=== PATIENT | male | born 1940 | race Caucasian/White ===

== ENCOUNTER → 2017-03-03 | Outpatient (CLI) | payer OTHER, MEDICARE | LOC: MMPC 11:11 | PROVIDERS: ATTEND Surgery | DX: R10.13 Epigastric pain (principal); K59.04 Chronic idiopathic constipation; R19.7 Diarrhea, unspecified | CPT/HCPCS: 99213; G0463 ==

== ENCOUNTER → 2017-03-10 | Outpatient (CLI) | payer OTHER, MEDICARE ==
--- NOTE | 2017-03-10 16:41 | DI ---
AIR CONTRAST BARIUM ENEMA, 03/10/2017 1:56 PM : Clinical History: Chronic idiopathic constipation. The patient indicated she is status post appendect terrance. Previous Exam: None at this facility. A "time out" session was performed to verify the patient's name and date of prior to initiatin g this procedure. The set decorator film is normal. Barium and air are advanced from the rectum to the cecum with visualization of the ileocecal valve. The appendix is not visualized consistent with the history of a prior appendectomy. There is redundancy of the ascending colon and the sigmoid colon. Diverticu la are present in the distal transverse colon through the sigmoid colon and as the bowel was distende d in these regions, small retained fecal particles were released from the diverticula into the, bariu m. Therefore, small polypoid lesions less than 10 mm in diameter cannot be identifiable. The entire c olon shows no evidence of an annular lesion, and the mucosal pattern is normal. The terminal ileum is normal. The distal descending thoracic aorta is quite prominent and there was an aneurysm present i n this location on a CT scan of the abdomen and pelvis from 02/12/2015. Readin. There is redundancy of the ascending colon and the sigmoid colon with diverticulosis involving th e distal transverse colon to the sigmoid colon without evidence of diverticulitis. 2. Small particles of stool were released from the diverticula as the colon was distended and theref ore small polyps less than 10 mm in diameter can be missed. No annular lesion or other stricture is i dentified, and there is no evidence of diverticulitis. The mucosal pattern throughout the colon is no rmal. 3. There is an aneurysm of the distal descending thoracic aorta.
== END ==
LOC: RAD 13:54
PROVIDERS: ATTEND Surgery
DX: K59.04 Chronic idiopathic constipation (principal); R10.13 Epigastric pain; K57.30 Diverticulosis of large intestine without perforation or abscess without bleeding
CPT/HCPCS: 74280

== ENCOUNTER 2018-09-02 15:58 | Observation (INO) ==
[2018-09-02] MEDS ORDERED: Sodium Chloride 0.9% 1,000 ML PRIMARY IV ONE (16:13)
[2018-09-02] MEDS ORDERED: PANTOPRAZOLE IV 40 MG VIAL IVP ONE ×2 (16:16→20:45)
--- NOTE | 2018-09-02 16:19 | EKG ---
[address] [place] [address] Measurements Intervals [place] Rate: 117 P: 24 MD: 160 QRS: 252 QRSD: 132 T: -12 QT: 346 QTc: 415 Interpretive Statements SINUS TACHYCARDIA MARKED RIGHT AXIS DEVIATION RIGHT BUNDLE BRANCH BLOCK MODERATE T-WAVE ABNORMALITY, CONSIDER LATERAL ISCHEMIA Compared to ECG 10/22/2017 09:10:04 Right-axis deviation now present T-wave abnormality now present Possible ischemia now present Sinus bradycardia no longer present Myocardial infarct finding no longer present Electronically Signed On 09-03-18 12:28:23 [facility] by Juan Jasmine [email or web address]
[2018-09-02 16:39] LABS: BASOPHILS # (AUTO) 0.02 10*3/UL; BASOPHILS % (AUTO) 0.1 % (0-1); EOSINOPHILS # (AUTO) 0 10*3/UL; EOSINOPHILS % (AUTO) 0 % (0-8); Hematocrit [HCT] 33.3 % (42.0-52.0); Hemoglobin [HGB] 10.4 g/dL (14.0-18.0); LYMPHOCYTES # (AUTO) 1.55 10*3/uL; MEAN CORPUSCULAR HGB CONC 31.2 g/dL (33-37); MEAN CORPUSCULAR VOLUME 89.5 FL (80-90); MEAN PLATELET VOLUME 11.2 FL (7.4-12.2); MONOCYTES # (AUTO) 0.55 10*3/UL (0.3-0.8); MONOCYTES % (AUTO) 3.9 % (5-15); NEUTROPHILS # (AUTO) 11.79 10*3/UL; NEUTROPHILS % (AUTO) 84.1 % (50-80); RED BLOOD COUNT 3.72 10^6/uL (4.70-6.10)
[2018-09-02 16:47] LABS: PLATELET MORPHOLOGY COMMENT NORMAL MORPHOLOGY (NORM); RBC MORPHOLOGY COMMENT NORMAL MORPHOLOGY (NORM); WBC MORPHOLOGY COMMENT NORMAL MORPHOLOGY (NORM)
[2018-09-02 16:52] LABS: BLOOD UREA NITROGEN 80 mg/dL (7-22); SERUM ALBUMIN 4.5 g/dL (3.5-4.8)
--- NOTE | 2018-09-02 17:44 | DI ---
EXAM: CT Abdomen and Pelvis Without Intravenous Contrast CLINICAL HISTORY: Right-sided abdominal pain, melena. TECHNIQUE: Axial computed tomography images of the abdomen and pelvis without intravenous contrast. COMPARISON: CT abdomen and pelvis dated 02/12/15 FINDINGS: Lung bases: 6 mm nodule in the dependent right lung base (series 2 image 7). Mild dependent atelectasis in bilateral lung bases. ABDOMEN: Liver: Unremarkable. Gallbladder and bile ducts: Status post cholecystectomy. No ductal dilation. Pancreas: Unremarkable. No ductal dilation. Spleen: Unremarkable. No splenomegaly. Adrenals: Unremarkable. No mass. Kidneys and ureters: Scattered bilateral simple appearing renal cortical cysts, largest measuring 5.8 cm in the left mid kidney. No hydronephrosis or hydroureter. Stomach and bowel: Descending and sigmoid colonic diverticulosis. Subtle stranding adjacent to the junction of the descending and sigmoid colon may suggest a low-grade diverticulitis. No obstruction. PELVIS: Appendix: Appendix is not definitively identified however no inflammatory changes are seen in the right lower quadrant. Bladder: Unremarkable. No stones. Reproductive: Enlarged prostate gland, impressing upon the urinary bladder base. ABDOMEN and PELVIS: Intraperitoneal space: Unremarkable. No free air. No significant fluid collection. Bones/joints: Posterior erendira and transpedicular screw fixation of L5-S1 with expected alignment. Status post L5 laminectomies. Multilevel degenerative changes throughout the visualized spine with disc space loss and endplate osteophytes. No acute fracture. Soft tissues: Unremarkable. Vasculature: Status post aortobiiliac stent grafts with celiac artery stent and bilateral renal arterial stents. Lack of IV contrast limits evaluation for stent patency. Stable appearance of a 2.8 x 2.5 cm diameter saccular aortic aneurysm on the right just below the right renal artery origin. Stable appearance of the distal infrarenal abdominal aortic aneurysm has a maximum diameter of 4.5 cm. Lymph nodes: Unremarkable. No enlarged lymph nodes. IMPRESSION: 1. Descending and sigmoid colonic diverticulosis. Subtle stranding adjacent to the junction of the descending and sigmoid colon may suggest a low-grade diverticulitis. No adjacent free air or fluid collections. 2. Status post aortobiiliac stent grafts with celiac artery stent and bilateral renal arterial stents. Lack of IV contrast limits evaluation for stent patency. 3. 2.8 x 2.5 cm diameter saccular aneurysm of the abdominal aorta on the right, just below the right renal artery origin (previously measuring 1.8 x 1.8 cm and 2015. 4. Distal abdominal aortic aneurysm with a maximum diameter of 4.5 cm (previously measuring 3.9 cm in 2015). 5. Enlarged prostate gland, impressing upon the urinary bladder base. 6. Scattered bilateral simple appearing renal cortical cysts, largest measuring 5.8 cm in the left mid kidney. 7. 6 mm nodule in the dependent right lung base (series 2 image 7). In low-risk patients (minimal or absent history of smoking or other known risk factors), recommend chest CT follow-up at 6-12 months. If stable consider an additional follow-up CT at 18-24 months. For high-risk patients (history of smoking or other known risk factors), recommend chest CT follow-up in 6-12 months and then at 18-24 months.
[2018-09-02] MEDS ORDERED: CefOXitin Inj 2 GM in Sodium Chloride 0.9% 100 ML IV ONE (18:42)
[2018-09-02] MEDS: Lactated Ringers 1,000 ML PRIMARY IV SCH (22:05)
--- NOTE | 2018-09-03 02:09 | PDOC ---
GI Bleed/Rectal Complaint HPI - General Chief Complaint: GI Bleed / Rectal Pain Stated Complaint: BLACK STOOL Date Seen by Provider: 09/03/18 Time Seen by Provider: 16:25 Source: POSITIVE: Patient Exam Limitations: POSITIVE: No limitations Nurse's Notes Reviewed & Considered: Yes - History of Present Illness Initial Comments: The patient is a 78-year-old male who presents to the emergency department with complaints of black stool. He underwent endoscopic repair of an abdominal aneurysm in [place] 3 weeks ago. Postoperatively it sounds like he did very well other than he was "spitting up a little bit of blood" for a couple of days after the procedure. He states that he has been doing fine since then. Today he has had 3 episodes of black tarry stool, 2 of which were quite large. He states that he does feel a little bit lightheaded. He has some mild vague abdominal pain. He denies any nausea or vomiting, fevers or chills or any other associated complaints. He states that he was not discharged home on any blood thinners after his procedure. - Patient Home Medications Home Medications: Home Medications Docusate Sodium [Stool Softener] 1 tab PO TID 05/24/15 Mometasone/Formoterol [Dulera 100 Mcg/5 Mcg Inhaler] 1 - 2 inh INH BID 05/24/15 Albuterol Neb Soln 0.083% 1 vial IH QID PRN #30 box 06/19/16 - Patient Allergies Allergies/Adverse Reactions: Allergies Allergy/AdvReac Type Severity Reaction Status Date / Time No Known Drug Allergies Allergy NOT Verified 09/02/18 21:09 APPLICABLE Past Medical History - heen HEENT History: Cataracts Additional HEENT History: SEPTAL DEVIATION WITH OBSTRUCTION OF LEFT SIDE Cardiovascular History: Hyperlipidemia Respiratory History: Home Oxygen Use Additional Respiratory History: LUNG DAMAGE DUE TO URANIUM EXPOSURE. OXYGEN AT NIGHT 4L Gastrointestinal History: GERD, Gallbladder Disease Additional Gastrointestinal History: COLON POLYPS Genitourinary History: Denies History Additional Genitourinary History: ENLARGED PROSTATE Endocrine History: Type 2 Diabetes (diet) Additional Endocrine History: "BORDERLINE DIABETIC" Musculoskeletal History: Arthritis Prosthesis or Implant: Yes (LUMBAR) Neurological History: Denies History, [place], Other (please comment) Additional Neurological History: INSOMNIA Blood Disorders: Denies History, Anemia Additional Blood Disorders History: acute anemia Psychiatric History: Denies History History of Sexually Transmitted Diseases: No Male Reproductive History: Denies History Cancer History: Denies History In Past Year Been Physically Harmed or Verbally Threatened: No History of MDRO: No History of Other Communicable Diseases: No Tobacco Use: Former Smoker Alcohol Use: Occasionally Type of alcohol normally used: Beer In the Past 12 Months, Have Used or Abuse Any Substance: None Previous Surgical History: Yes Type / Date of Surgery: APPY 02/12/15 COLONOSCOPY/TONSILLECTOMY/VASECTOMY/LUMBAR FUSION THREE LEVEL AND DISCS/CATATACTS BILAT/RETINAL REPAIR BILAT/ROTATOR CUFF REPAIR LEFT Anesthesia Reactions: No Malignant Hyperthermia: No Significant Family History: No pertinent family hx Past Medical History Reviewed: Reviewed - No Changes ROS - Limitations ROS Limitations: No Limitations Constitution: DENIES: Chills, Fever Cardiovascular: REPORTS: Denies Cardiac Symptoms. DENIES: Chest Pain Respiratory: DENIES: Hurts To Breathe, Shortness Of Breath Neurological: REPORTS: Denies Neuro Symptoms Gastrointestinal: REPORTS: Abdominal Pain (Mild vague abdominal pain), Black Stools. DENIES: Nausea, Vomitting Endocrine: REPORTS: Fatigue Genitourinary: REPORTS: Denies Symptoms Eyes: REPORTS: Denies Symptoms ENT: REPORTS: Denies Symptoms Skin: DENIES: Rash GI Bleed / Rectal Complaint PE - General Appearance General Appearance: POSITIVE: Alert, Cooperative, No Acute Distress - HEENT HEENT: POSITIVE: Head Inspection Nml, Eyes Inspection Nml, Ears Inspection Nml, Nose Inspection Nml, Pharynx Inspect. Nml - Neck Neck: POSITIVE: Normal Inspection. NEGATIVE: Lymphadenopathy - Respiratory Respiratory: POSITIVE: No Respiratory Distress, Breath Sounds Normal - Cardiovascular Cardiovascular: POSITIVE: Regular Rate and Rhythm, Heart Sounds Normal Peripheral Pulses: Dorsalis-pedis (R): 2+, Dorsalis-pedis (L): 2+ - Abdomen Abdomen: Soft: (All Quadrants), Normal Bowel Sounds: (All Quadrants), No Guarding: (All Quadrants), No Rebound: (All Quadrants), No Palpabale Mass: (All Quadrants) Additional Abdomen Details: He does have some mild tenderness in the right mid abdomen, no guarding or re bound tenderness, no palpable mass - Genital / Rectal Rectal: POSITIVE: Other (Stool was grossly melanotic and is heme positive) - Skin Skin: POSITIVE: Color Normal - Extremities Extremity: Normal ROM: (All Extremities), Normal Inspection: (All Extremities) - Neurological / Psychological Neurological: POSITIVE: Oriented X3, gl accountant Normal As Tested, Motor Normal, Sensation Normal GI Bleed / Rectal Progress - Results Reviewed by me Xrays/CTs/US Reviewed by me: Yes Discussed with Radiologist: Yes Radiology Findings: CT scan of the abdomen and pelvis without IV contrast shows diverticular disease with some vague inflammatory change along the sigmoid colon suspicious for diverticulitis per radiologist. Lab Results Reviewed by Me: Yes Lab Results:: Laboratory Results 09/02/18 09/02/18 09/02/18 16:13 16:13 16:13 WBC 14.02 H RBC 3.72 L Hgb 10.4 L Hct 33.3 L MCV 89.5 MCH 28.0 MCHC 31.2 L RDW Std Deviation 46.1 RDW Coeff of Alla 14.5 Plt Count 213 MPV 11.2 Immature Gran % (Auto) 0.8 Neut % (Auto) 84.1 H Lymph % (Auto) 11.1 [place] % (Auto) 3.9 L Eos % (Auto) 0 Baso % (Auto) 0.1 Immature Gran # (Auto) 0.11 Neut # (Auto) 11.79 Lymph # (Auto) 1.55 [place] # (Auto) 0.55 Eos # (Auto) 0 Baso # (Auto) 0.02 WBC Morphology Comment Normal morphology Plt Morphology Comment Normal morphology RBC Morph Comment Normal morphology Sodium 143 Potassium 4.8 Chloride 112 Carbon Dioxide 18 L Anion Gap 13 BUN 80 H Creatinine 1.6 H Estimated GFR Benzene Worker BUN/Creatinine Ratio 50.00 H Glucose 188 H Calculated Osmolality 324.0 H Calcium 9.4 Magnesium 1.9 Total Bilirubin 0.6 AST 23 ALT 25 Alkaline Phosphatase 75 Troponin I < 0.012 C-Reactive Protein 1.0 H Total Protein 6.9 Albumin 4.5 Globulin 2.4 L Albumin/Globulin Ratio 1.80 Blood Type Antibody Screen Crossmatch 09/02/18 16:14 WBC RBC Hgb Hct MCV MCH MCHC RDW Std Deviation RDW Coeff of Alla Plt Count MPV Immature Gran % (Auto) Neut % (Auto) Lymph % (Auto) [place] % (Auto) Eos % (Auto) Baso % (Auto) Immature Gran # (Auto) Neut # (Auto) Lymph # (Auto) [place] # (Auto) Eos # (Auto) Baso # (Auto) WBC Morphology Comment Plt Morphology Comment RBC Morph Comment Sodium Potassium Chloride Carbon Dioxide Anion Gap BUN Creatinine Estimated GFR BUN/Creatinine Ratio Glucose Calculated Osmolality Calcium Magnesium Total Bilirubin AST ALT Alkaline Phosphatase Troponin I C-Reactive Protein Total Protein Albumin Globulin Albumin/Globulin Ratio Blood Type A POSITIVE Antibody Screen Negative Crossmatch See Detail CBC and BMP: 09/02/18 16:13 09/02/18 16:13 EKG Interpreted/Reviewed By Me:: Yes EKG Interpretation:: POSITIVE: Normal Sinus Rhythm, Normal Rate, Other (EKG shows right bundle branch block) - Patient's Progress MDM / ED Course: The patient presents to the emergency department with complaints of melanotic stool. His stool is heme positive and grossly melanotic. He was slightly tachycardic on arrival with a pulse in the 1 teens. His blood pressure was in the 100s systolic. An IV was established and the patient received 1 L bolus of normal saline as well as IV Protonix 40 mg. Blood work reveals a mildly elevated white count of 14,000 and his hemoglobin is 10.2. BUN is elevated at 80 and his creatinine is 1.6. CT scan of the abdomen and pelvis shows diverticular disease with some vague inflammatory change along the sigmoid colon concerning for diverticulitis per radiologist. He also has underlying extensive stent from recent abdominal aortic repair. Surgical consultation was obtained per Dr. Adams and she has made arrangements to admit the patient for further evaluation and monitoring. The patient did receive cefoxitin 2 g IV. He was also typed and crossed for 2 units of packed red blood cells. - Consult Counseled: POSITIVE: Patient, Family, RE: Lab Results, RE: Radiology Results, RE: DX, RE: Need for F/U Patient Care Time - Estimated PCT Patient Care Time (In Minutes): 35 Vital Signs - VS Reviewed Vital Signs Reviewed: Yes Discharge Clinical Impression: GI bleed, Anemia, Colitis Discharge Disposition: Admit to Observation Condition: Fair
[2018-09-03 04:46] LABS: BASOPHILS # (AUTO) 0.02 10*3/UL; BASOPHILS % (AUTO) 0.2 % (0-1); EOSINOPHILS # (AUTO) 0.02 10*3/UL; EOSINOPHILS % (AUTO) 0.2 % (0-8); Hematocrit [HCT] 25.5 % (42.0-52.0); LYMPHOCYTES # (AUTO) 1.55 10*3/uL; MEAN CORPUSCULAR HEMOGLOBIN 28.3 PG (27-31); MEAN CORPUSCULAR HGB CONC 31.4 g/dL (33-37); MEAN CORPUSCULAR VOLUME 90.1 FL (80-90); MEAN PLATELET VOLUME 11.3 FL (7.4-12.2); MONOCYTES # (AUTO) 0.74 10*3/UL (0.3-0.8); NEUTROPHILS # (AUTO) 6.89 10*3/UL; NEUTROPHILS % (AUTO) 74.1 % (50-80); RED BLOOD COUNT 2.83 10^6/uL (4.70-6.10)
[2018-09-03 04:49] LABS: PLATELET MORPHOLOGY COMMENT NORMAL MORPHOLOGY (NORM); RBC MORPHOLOGY COMMENT NORMAL MORPHOLOGY (NORM); WBC MORPHOLOGY COMMENT NORMAL MORPHOLOGY (NORM)
[2018-09-03] MEDS: Lactated Ringers 1,000 ML PRIMARY IV SCH (05:05)
[2018-09-03] MEDS ORDERED: Sodium Chloride 0.9% 500 ML PRIMARY IV SCH (05:15)
[2018-09-03] MEDS ORDERED: PROPOFOL 10 MG/1 ML (200 MG/20 ML) VIAL IV ONE (07:03)
[2018-09-03] MEDS ORDERED: PANTOPRAZOLE IV 40 MG VIAL IVP SCH (09:00)
--- NOTE | 2018-09-03 09:48 | CRNA.PROGR ---
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
--- NOTE | 2018-09-03 09:49 | CRNA.PROGR ---
Post Anesthesia Phase II - Post Anesthesia Phase II Patient Stable and Discharged To: Med/Surg Care Assumed By Surgeon: Other Temperature: 98.3 F Pulse Rate: 79 Respiratory Rate: 17 Blood Pressure: 114/60 Pulse Ox: 98 Total Izzy Score at Discharge: 9 Post Anesthesia Discharge Criteria Met: Yes
--- NOTE | 2018-09-03 10:04 | GEN.OPNOTE ---
EGD Operative Note Surgery Date: 09/03/18 Preoperative Diagnosis: PUD with acute anemia Postoperative Diagnosis: Duodenal bulb ulcer (8 x 4 mm) with fibrinous exudate at base and no active bleeding Procedure: EGD with biopsy Surgeon: Tiffany Adams Anesthesia Provider: Crystal Medel CRNA Anesthesia Type: MAC Indications: The patient presented with melena and acute anemia Findings: Esophagus: [Normal] GE Junction : [Esophagitis] Fundus : [Normal] Body : [Normal] Prepyloric : [Normal] Small Intestine : [Normal] Ulcer located in distal duodenal bulb A lubricated flexible upper endoscope was inserted and passed through the esophagus and stomach into the duodenum. Estimated Blood Loss (mL): 1
[2018-09-03] MEDS: Sodium Chloride 0.9% 500 ML PRIMARY IV SCH (10:13)
[2018-09-03] MEDS ORDERED: ALBUTEROL SULFATE 2.5 MG/3 ML NEB PRN (10:13)
[2018-09-03] MEDS ORDERED: ALBUTEROL INH SCH (11:30)
[2018-09-03] MEDS: SPIRIVA RESPIMAT INH SCH (14:40)
[2018-09-04] MEDS: Sodium Chloride 0.9% 500 ML PRIMARY IV SCH ×2 (00:56→07:40)
[2018-09-04 05:17] VITALS: O2SAT 94
[2018-09-04 05:22] LABS: Hematocrit [HCT] 27.8 % (42.0-52.0); Hemoglobin [HGB] 8.7 g/dL (14.0-18.0); MEAN CORPUSCULAR HEMOGLOBIN 28.1 PG (27-31); MEAN CORPUSCULAR HGB CONC 31.3 g/dL (33-37); MEAN CORPUSCULAR VOLUME 89.7 FL (80-90); MEAN PLATELET VOLUME 11.5 FL (7.4-12.2); RED BLOOD COUNT 3.1 10^6/uL (4.70-6.10)
[2018-09-04] MEDS: SPIRIVA RESPIMAT INH SCH (06:39)
[2018-09-04 06:57] VITALS: BP 113/69; RESP 12; TEMP 97.8
[2018-09-04] MEDS ORDERED: PANTOPRAZOLE 40 MG TABLET PO SCH (07:00)
[2018-09-04] MEDS ORDERED: DULERA INH SCH (07:00)
== END 2018-09-04 10:07 | disposition home or self-care (01) ==
LOC: MED/SURG 15:58 → ER 15:58 → MED/SURG 21:24 → OPS 09-03 09:13 → MED/SURG 09-03 11:07
PROVIDERS: ADMIT Surgery; ATTEND Surgery